=== PATIENT | female | born 1940 | race Caucasian/White ===

== ENCOUNTER → 2016-06-26 | Outpatient (CLI) | payer MEDICARE, OTHER ==
[~2016-06-26] MED LIST: ADVIL200 MG PO; ASPIRIN325 MG PO; COZAAR50 MG PO; K-TAB 10MEQ10 MEQ PO; LASIX40 MG PO; LIPITOR80 MG PO; LOPRESSOR50 MG PO; MUCINEX1200 MG PO; NORVASC10 MG PO
== END | disposition disaster alternative care site (69) ==
LOC: LCNC 15:10
DX: E78.5 Hyperlipidemia, unspecified (principal)